=== PATIENT | male | born 1960 | race Caucasian/White ===

== ENCOUNTER 2017-03-03 09:03 | Outpatient (CLI) | payer OTHER ==
[2015-07-20 11:20] VITALS: BP 107/68
[2017-03-03 10:01] LABS: eGFR (African) > 60; eGFR (Non-African) > 60
== END 2017-03-03 09:04 ==
LOC: LAB 09:03
PROVIDERS: ATTEND Family Medicine
DX: E11.9 Type 2 diabetes mellitus without complications (principal)
CPT/HCPCS: 36415; 80053; 82043; 83036

== ENCOUNTER 2017-03-21 09:57 | Day surgery (SDC) | payer OTHER ==
[2015-07-20 11:20] VITALS: BP 107/68
--- NOTE | 2017-03-21 13:28 | GI Report ---
REFERRING PHYSICIAN: Dr. Ignacio Mix SYSTEM CONFIGURATION SPECIALIST: Cy Agosto MD PROCEDURE MEDICATION: Propofol as per anesthesia. INDICATIONS: Patient is a 56-year-old man referred for a colonoscopy. He has had blood in his stool. The patient is a diabetic. He has been a cigarette smoker for 40 years. He denies a family history of colon cancer. PROCEDURE PERFORMED: Colonoscopy with polypectomies. PROCEDURE: An Olympus video colonoscope was advanced into the rectum. In the sigmoid at 20 cm, there was a 3 to 4 mm polyp removed with electrocautery and a very atonic redundant colon. It took some nurse compression to reach the cecum. At the bottom of the cecum, the patient had another 3 to 4 mm polyp removed with electrocautery. On slow withdrawal, the remaining part of the ascending colon and transverse colon were normal except for redundancy. The remaining part of the descending colon was normal except for redundancy. The polyp again was removed in the sigmoid at 20 cm. Retroflexion of the rectum showed some hemorrhoids. Patient tolerated the procedure well. FINDINGS: 1. Two polyps removed, 1 in the cecum and 1 in the sigmoid at 20 cm. 2. Internal hemorrhoids. 3. An atonic redundant colon. RECOMMENDATIONS: 1. Increase bulk fiber in the diet. 2. Recommendation of discontinuing tobacco usage. 3. Consider re-looking at his colon within 5 years pending the pathology of the polyps. cc: Dr. Ignacio VANEGAS
== END 2017-03-21 10:00 ==
LOC: OPSURG 09:57
PROVIDERS: ATTEND Internal Medicine Gastroenterology
DX: K92.1 Melena (principal); F17.210 Nicotine dependence, cigarettes, uncomplicated; E11.9 Type 2 diabetes mellitus without complications; D12.0 Benign neoplasm of cecum; D12.5 Benign neoplasm of sigmoid colon; K59.8 Other specified functional intestinal disorders; K64.8 Other hemorrhoids
CPT/HCPCS: 88305; J2001; J2405; J7120; 45385; S1016

== ENCOUNTER 2017-06-02 09:10 | Outpatient (CLI) | payer OTHER ==
[2015-07-20 11:20] VITALS: BP 107/68
[2017-06-02 09:53] LABS: eGFR (African) > 60; eGFR (Non-African) > 60
== END 2017-06-02 09:11 ==
LOC: LAB 09:10
PROVIDERS: ATTEND Family Medicine
DX: E11.9 Type 2 diabetes mellitus without complications (principal)
CPT/HCPCS: 36415; 80053; 83036

== ENCOUNTER 2017-09-02 18:10 | Emergency (ER) | payer OTHER ==
--- NOTE | 2017-09-02 18:20 | ED Physician Documentation ---
General Adult - HISTORIAN Historian: patient, spouse - HPI Stated Complaint: Cough Chief Complaint: Cough/ Upper Respiratory Onset: days ago (2) Timing: better Severity: mild Modifying Factors: talking or eating increases cough Further Comments: no Last known Well Date: 08/30/17 Last Known Well Time: 08:00 Last known Well Code/Unknown Code: Unknown - ROS CONST: denies: fever, sweating, weakness, chills EYES/ENT: none, nasal drainage, nasal congestion. denies: sore throat CVS/RESP: shortness of breath, cough. denies: chest pain GI/: none MS/SKIN/LYMPH: none - PAST HX Past History: other (DM , anxiety, ) Surgeries/Procedures: other (tib/fib ) Immunizations: referred to PCP - SOCIAL HX Smoking History: cigarettes Alcohol Use: none Drug Use: none - FAMILY HX Family History: No - VITAL SIGNS Vital Signs: Vital Signs Temp Pulse Resp BP Pulse Ox 107/68 07/20/15 11:32 - REVIEWED ASSESSMENTS Nursing Assessment Reviewed: Yes Vitals Reviewed: Yes <Maria Johns - Last Filed: 09/02/17 18:36> - VITAL SIGNS Vital Signs: Vital Signs Temp Pulse Resp BP Pulse Ox 97.6 F 103 H 16 93/66 94 09/02/17 18:12 09/02/17 18:12 09/02/17 18:12 09/02/17 18:12 09/02/17 18:12 <Ramez Lopez - Last Filed: 09/02/17 23:30> - PAST HX Allergies/Adverse Reactions: Allergies Allergy/AdvReac Type Severity Reaction Status Date / Time No Known Allergies Allergy Verified 09/02/17 18:23 Progress - Results/Orders Results/Orders: cbc, cmp, bnp, cxr ordered - Progress Progress: pt. given 1 gram rocephin im, 600 mg mucinex and tessalon perles 200 mg p.o., pulmicort 0.5 mg via nebulizer, duoneb via nebulizer in er <Ramez Lopez - Last Filed: 09/02/17 23:30> Critical Care Note - Critical Care Note Total Time (mins): 0 <Ramez Lopez - Last Filed: 09/02/17 23:30> ED Results Lab/Radiology - Lab Results Lab Results: Lab Results 09/02/17 09/02/17 09/02/17 18:50 18:50 18:50 WBC 9.90 K/ul K/ul (4.00-12.00) RBC 5.47 M/ul H M/ul (3.90-5.20) Hgb 17.1 g/dL g/dL (12.0-18.0) Hct 49.7 % % (37.0-53.0) MCV 91.0 fl fl (80.0-100.0) MCH 31.2 pg pg (28.0-34.0) MCHC 34.3 g/dL g/dL (30.0-36.0) RDW 12.9 % % (11.3-14.3) Plt Count 268 K/mm3 K/mm3 (130-400) Neut % (Auto) 69.5 % % (39.0-79.0) Lymph % (Auto) 19.3 % % (16.0-50.0) [place] % (Auto) 5.3 % % (0.0-11.0) Eos % (Auto) 4.3 % % (0.0-6.8) Baso % (Auto) 0.6 (0.0-1.5) Neut # (Auto) 6.9 # k/uL # k/uL (1.4-7.7) Lymph # (Auto) 1.9 # k/uL # k/uL (0.6-4.0) [place] # (Auto) 0.5 # k/uL # k/uL (0.0-0.9) Eos # (Auto) 0.4 # k/uL # k/uL (0.0-0.6) Baso # (Auto) 0.1 # k/uL # k/uL (0.0-0.5) Reactive Lymphs % 1.1 % % (0.0-5.0) Reactive Lymphs # 0.1 # k/uL # k/uL (0.0-0.8) Sodium 137 mmol/L mmol/L (137-145) Potassium 4.1 mmol/L mmol/L (3.5-5.1) Chloride 101 mmol/L mmol/L (98-107) Carbon Dioxide 26 mmol/L mmol/L (22-30) BUN 8 mg/dL L mg/dL (9-20) Creatinine 1.30 mg/dL H mg/dL (0.66-1.25) Estimated Creat Clear 66 Est GFR ( Amer) > 60 (60 - ) Est GFR (Non-Af Amer) > 60 (60 - ) Glucose 94 mg/dL mg/dL (74-106) Calcium 9.4 mg/dL mg/dL (8.4-10.2) Total Bilirubin 0.2 mg/dL mg/dL (0.2-1.3) AST 38 U/L U/L (15-46) ALT 34 U/L U/L (13-69) Alkaline Phosphatase 86 U/L U/L (38-126) NT-Pro-B Natriuret Pep 27.3 pg/mL pg/mL (15.0-125.0) Total Protein 8.3 g/dL H g/dL (6.3-8.2) Albumin 4.6 g/dL g/dL (3.5-5.0) - Radiology Radiology Impressions: cxr clear of infiltrate - Orders Orders: ED Orders Category Date Time Status CHEST 2 VIEW [CHEST P.A.&LAT 2 VIEWS] [RAD] Stat Exams 09/02/17 Taken BNP [NT-proBNP] Urgent Lab 09/02/17 18:50 Completed CBC/PLATELET/DIFF Routine Lab 09/02/17 18:50 Completed CMP [CMP] Routine Lab 09/02/17 18:50 Completed Benzonatate [Tessalon] Med 09/02/17 19:50 Discontinued 200 mg PO NOW ONE Budesonide [Pulmicort] Med 09/02/17 19:00 Ordered 0.5 mg NEB BID Ipratropium/Albuterol Sulfate [Duoneb] Med 09/02/17 18:33 Discontinued 3 ml NEB NOW ONE Lidocaine 1% 5ml(IM or SUTURE) [Xylocaine] Med 09/02/17 19:51 Discontinued 50 mg IJ NOW ONE cefTRIAXone SODIUM [Rocephin] Med 09/02/17 19:49 Discontinued 1 gm IM NOW ONE guaiFENesin [Mucinex] Med 09/02/17 19:49 Discontinued 600 mg PO NOW ONE <Ramez Lopez - Last Filed: 10/13/17 23:30> General Adult Physical Exam - PHYSICAL EXAM GENERAL APPEARANCE: no distress EENT: eye inspection normal, ENT inspection normal, pharynx normal NECK: normal inspection RESPIRATORY: wheezes CVS: reg rate & rhythm, heart sounds normal ABDOMEN: soft, distended. No: guarding BACK: normal inspection SKIN: warm/dry, normal color EXTREMITIES: non-tender, normal range of motion, no evidence of injury NEURO: oriented X3, CN's nml as tested, motor nml <Maria Johns - Last Filed: 09/02/17 18:36> Discharge <Maria Johns - Last Filed: 09/02/17 18:36> Comments: pt. discharged in stable condition with scripts for keflex 500 mg 2 capsules twice daily for 10 days. tessalon perles 200 mg 1 pill 3x/day and mucinex ds 1 pill 3x/day Decision to Admit: NO Decision Time: 20:38 <Ramez Lopez - Last Filed: 09/02/17 23:30> Clincal Impression: Bronchitis Referrals: Ignacio Mix MD [Primary Care Provider] - 2 Days Condition: Stable Disposition: 01 HOME, SELF-CARE
[2017-09-02] MEDS ORDERED: IPRATROPIUM/ALBUTEROL SULFATE 3 ML AMPUL.NEB NEB ONE (18:33)
[2017-09-02] MEDS ORDERED: BUDESONIDE 0.5MG/2ML AMPUL.NEB NEB ONE (18:39)
[2017-09-02] MEDS ORDERED: BUDESONIDE 0.5MG/2ML AMPUL.NEB NEB SCH (19:00)
[2017-09-02 19:05] LABS: BASOPHILS % 0.6 (0.0-1.5); EOSINOPHILS % 4.3 % (0.0-6.8); MEAN CORPUSCULAR HEMOGLOBIN 31.2 pg (28.0-34.0); MONOCYTES % 5.3 % (0.0-11.0); NEUTROPHILS # 6.9 # k/uL (1.4-7.7)
[2017-09-02 19:16] LABS: eGFR (African) > 60; eGFR (Non-African) > 60
[2017-09-02] MEDS ORDERED: cefTRIAXone SODIUM 1 GM VIAL IM ONE (19:49)
[2017-09-02] MEDS ORDERED: BENZONATATE 100 MG CAPSULE PO ONE (19:50)
[2017-09-02] MEDS ORDERED: Lidocaine 1% 5ml(IM or SUTURE)(PAIN CLINIC) IJ ONE (19:51)
[2017-09-02 21:08] VITALS: BP 140/72
--- NOTE | 2017-09-03 02:21 | Diagnostic Imaging Report ---
JENNY JOHN [facility] [address] [facility] [address] [place], [place]. [address] Report Submission Date: Sep 02, 2017 7:11:45 PM CDT Patient Study Name: NAREN MICHAELS Date: Sep 02, 2017 6:54:04 PM CDT Modality Type: CR Gender: M Description: CHEST : 56 Institution: [facility] Physician: JENNY JOHN Pa and lateral chest Clinical history : Coughing for 2 days Technique pa and lateral upright Findings: The lung barroso are clear. I see no hilar or mediastinal mass. There is no pleural effusion or lesion of the bony thorax except spondylosis of the spine Impression: No acute pulmonary disease Electronically signed on Sep 02, 2017 7:11:45 PM CDT by: Magdiel VANEGAS
== END 2017-09-02 21:00 | disposition home or self-care (01) ==
LOC: ED 18:10
DX: J40 Bronchitis, not specified as acute or chronic (principal)
CPT/HCPCS: 36415; 71020; 80053; 83880; 85025; A9270; J0696; J7626; 96372; 99283

== ENCOUNTER 2017-11-24 09:44 | Outpatient (CLI) | payer OTHER ==
[2017-11-24 10:43] LABS: eGFR (African) > 60; eGFR (Non-African) > 60
== END 2017-11-24 09:45 ==
LOC: LAB 09:44
PROVIDERS: ATTEND Family Medicine
DX: E11.9 Type 2 diabetes mellitus without complications (principal)
CPT/HCPCS: 36415; 80053; 80061; 82043; 83036

== ENCOUNTER 2018-08-23 12:26 | Emergency (ER) | payer OTHER ==
[2018-08-23] MEDS ORDERED: 0.9 % SODIUM CHLORIDE 1,000 ML IV ONE ×2 (12:39→13:47)
--- NOTE | 2018-08-23 12:49 | ED Physician Documentation ---
General Adult - HISTORIAN Historian: patient - HPI Stated Complaint: staggering gait/dizziness Chief Complaint: General Adult Onset: other (at lunch today ) Timing: better Severity: mild Further Comments: yes (He reports around noon going to clock out and he was staggering with his walking to the time clock. He states he "managed" to get to the car and drive home. On the way home he did feel a few waves of dizziness and had to "crawl up the stairs to the house" states he did eat lunch and the symptoms of feeling he could not walk straight did not improve so his and he decided to come to the ER. HE denies any sinus pain or pressure. No ear pain. NO fever. No OTC meds. No chest pain. No slurred speech. denies feeling he was favoring one side vs the other. He is able to speak clearly. No N/V/D. No head injury) Last known Well Code/Unknown Code: Unknown - ROS CONST: no problems EYES/ENT: denies: problems with vision, nasal drainage, nasal congestion CVS/RESP: denies: chest pain, shortness of breath, cough GI/: denies: abdominal pain, vomiting, nausea, diarrhea MS/SKIN/LYMPH: denies: rash NEURO/PSYCH: dizziness, difficulty walking. denies: headache, fainting, tingling, numbness, difficulty with speech, anxiety, depression - PAST HX Past History: hypertension, other (hyperlipidemia ) Other History: diabetes Type 2 Immunizations: UTD Allergies/Adverse Reactions: Allergies Allergy/AdvReac Type Severity Reaction Status Date / Time No Known Allergies Allergy Verified 08/23/18 12:52 - SOCIAL HX Smoking History: cigarettes Alcohol Use: none Drug Use: none - FAMILY HX Family History: No - VITAL SIGNS Vital Signs: Vital Signs Temp Pulse Resp BP Pulse Ox 140/72 09/02/17 21:00 - REVIEWED ASSESSMENTS Nursing Assessment Reviewed: Yes Vitals Reviewed: Yes Progress - Progress Progress: 1350: results so far received discussed with pt and spouse. He is feeling some better. He is not a "big water drinker" so he is agreeable he could be dehydrated. DG 1420: Feeling better per report. Awaiting lab results pt aware DG 1422: Labs resulted and pt aware of plan. DG ED Results Lab/Radiology - Radiology Radiology Impressions: Examination: CT head without contrast History: CT HEAD W/O, DIZZY, STAGGERING GAIT TODAY, NO HX OF INJURY (Hx) Comparison exam: None available Technique: Noncontrast head CT protocol. Findings: Ventricles and sulci are prominent. Cerebrocerebellar parenchyma demonstrates periventricular low attenuation consistent with small vessel disease. No evidence for parenchymal hemorrhage. Bilateral basal ganglia calcifications. No evidence for mass or mass effect. No midline shift. No extra axial fluid collections. Partial visualization of the paranasal sinuses, mastoid air cells, orbits, skull and scalp without gross irregularity. Impression: Age related changes. No acute parenchymal process. No hemorrhage. Electronically signed on Aug 23, 2018 1:24:38 PM CDT by: Aubrey Mendoza - Orders Orders: ED Orders Category Date Time Status Place IV Lock 1T Care 08/23/18 12:[address] BRAIN W/O CONTRAST Stat Exams 08/23/18 Ordered ALCOHOL MEDICAL USE ONLY Routine Lab 08/23/18 Ordered CBC REF Routine Lab 08/23/18 12:38 Received CMP Routine Lab 08/23/18 Ordered CREATINE KINASE Routine Lab 08/23/18 Ordered DRUG SCREEN URINE MEDICAL ONLY Routine Lab 08/23/18 Ordered TROPONIN I (cTnI) Stat Lab 08/23/18 Ordered URINALYSIS Routine Lab 08/23/18 Ordered 0.9 % Sodium Chloride [Normal Saline] 1,000 ml Med 08/23/18 12:39 Ordered IV NOW EKG WITH COMPARISON Stat Ther 08/23/18 Ordered General Adult Physical Exam - PHYSICAL EXAM GENERAL APPEARANCE: no distress EENT: eye inspection normal, ENT inspection normal, pharynx normal, TM's nml, dry mucous membranes NECK: normal inspection RESPIRATORY: no resp distress, chest non-tender, breath sounds normal CVS: reg rate & rhythm, heart sounds normal, equal pulses, no murmur ABDOMEN: soft, normal bowel sounds, no distension, non-tender BACK: normal inspection, no CVA tenderness SKIN: warm/dry, normal color EXTREMITIES: non-tender, normal range of motion, no evidence of injury, no edema NEURO: oriented X3, CN's nml as tested, motor nml, sensation nml, mood/affect nml, cognition normal Discharge Clincal Impression: Dehydration Referrals: Ignacio Mix MD [Primary Care Provider] - 2 Days Comments: 1. Increase fluid intake 2. Change position slowly 3. Follow up with Dr Mix in 2-4 days or sooner if no improvement 4. Rest today 5. Return to ER for any concerns Condition: Stable Disposition: 01 HOME, SELF-CARE Decision to Admit: NO Date of Decison to Admit: 08/23/18 Decision Time: 14:24
[2018-08-23 13:14] LABS: eGFR (Non-African) 60
[2018-08-23 13:51] LABS: BASO % 0.4 % (0.0-1.5); EOS % 2.4 % (0.0-6.8); LYMPH ABS # 4.59 thou/uL (0.60-4.00); MCH. 30.8 pg (28.0-34.0); MCV 91.3 fL (80.0-100.0); MONOCYTE % 4.4 % (0.0-11.0); MONOCYTE ABS # 0.59 thou/uL (0.00-0.90); PLATELET COUNT 326 thou/uL (130-400)
[2018-08-23 14:19] LABS: TROPONIN T <0.010 ng/mL (<0.010)
[2018-08-23 14:45] VITALS: BP 107/68
[2018-08-23 15:09] LABS: APPEARANCE,URINE CLEAR (CLEAR); CANNABINOIDS NEGATIVE ng/mL (< 50); COLOR,URINE AMBER (YELLOW); METHYLENEDIOXYMETHAMPHETAMINE NEGATIVE ng/mL (<500)
[2018-08-23 15:10] LABS: OCCULT BLOOD,URINE NEGATIVE (NEGATIVE)
--- NOTE | 2018-08-23 15:32 | Diagnostic Imaging Report ---
JENNY JOHN [facility] [address] [facility] [address] [place], [place]. [address] Report Submission Date: Aug 23, 2018 1:24:38 PM CDT Patient Study Name: NAREN MICHAELS Date: Aug 23, 2018 1:03:17 PM CDT Modality Type: CT\SR Gender: M Description: CT BRAIN W/O CONTRAST : 56 Institution: [facility] Physician: JENNY JOHN Examination: CT head without contrast History: CT HEAD W/O, DIZZY, STAGGERING GAIT TODAY, NO HX OF INJURY (Hx) Comparison exam: None available Technique: Noncontrast head CT protocol. Findings: Ventricles and sulci are prominent. Cerebrocerebellar parenchyma demonstrates periventricular low attenuation consistent with small vessel disease. No evidence for parenchymal hemorrhage. Bilateral basal ganglia calcifications. No evidence for mass or mass effect. No midline shift. No extra axial fluid collections. Partial visualization of the paranasal sinuses, mastoid air cells, orbits, skull and scalp without gross irregularity. Impression: Age related changes. No acute parenchymal process. No hemorrhage. Electronically signed on Aug 23, 2018 1:24:38 PM CDT by: Aubrey VANEGAS
== END 2018-08-23 14:29 | disposition home or self-care (01) ==
LOC: ED 12:26
DX: E86.0 Dehydration (principal)
CPT/HCPCS: 70450; 80053; 80320; 80377; 81002; 82550; 84484; 85025; 93005; J7030; 96360; 96361; 99284; G0480; G0481; S1016

== ENCOUNTER 2019-01-12 09:25 | Outpatient (CLI) | payer OTHER ==
[2019-01-12 10:20] LABS: eGFR (Non-African) > 60
== END 2019-01-12 09:35 ==
LOC: LAB 09:25
PROVIDERS: ATTEND Family Medicine
DX: E11.9 Type 2 diabetes mellitus without complications (principal)
CPT/HCPCS: 36415; 80053; 80061; 82043; 83036

== ENCOUNTER 2019-09-27 11:50 | Outpatient (CLI) | payer OTHER ==
[2019-09-27 12:34] LABS: A1C 5.6 % (<5.7)
[2019-09-27 13:10] LABS: HDL 38 mg/dL (>40); eGFR (Non-African) > 60
--- NOTE | 2019-09-27 15:30 | Diagnostic Imaging Report ---
PATIENT MR#: [id number] PATIENT PATIENT NAME: NAREN MICHAELS DATE OF : 1960 REFERRING PHYSICIAN: Ignacio Mix EXAM DATE: 09/27/2019 ACCESSION NUMBER: [id number] EXAM DESCRIPTION: CHEST 2VIEW HISTORY: COUGH X1 MONTH, PT STATES SMOKER- 1.5 PPD, NO OTHER KNOWN CHEST HX. COMPARISON: None available. CHEST RADIOGRAPH, FRONTAL AND LATERAL: Upper mediastinum: Not widened. Heart: No cardiomegaly. Lungs: There is an 8 mm hemispherically shaped density superimposed over the left 6th anterior rib wh ich likely represents nipple shadow. No lobar infiltrate, pulmonary edema, pneumothorax or significant effusion. Skeleton: No acute findings. IMPRESSION: 1. Probable nipple shadow superimposed over the left lower lung. This may be confirmed with bilateral shallow oblique chest radiograph with nipple markers, to exclude left lower lobe pulmonary nodule, in a patient with smoking history. 2. No acute thoracic process. Read by: Dr. Marcio Torres Transcribed by: Marcio Torres Transcribed Date: 09/27/2019 3:29:45 PM Electronically signed by: Dr. Marcio Torres Date signed: 09/27/2019 3:30:06 PM
== END 2019-09-27 11:55 ==
LOC: LAB 11:50
PROVIDERS: ATTEND Family Medicine
DX: E11.9 Type 2 diabetes mellitus without complications (principal); I10 Essential (primary) hypertension; R63.4 Abnormal weight loss; R05 Cough
CPT/HCPCS: 36415; 71046; 80053; 80061; 82043; 83036; 84439; 84443; 84481

== ENCOUNTER 2019-10-10 08:47 | Outpatient (CLI) | payer OTHER ==
--- NOTE | 2019-10-10 17:29 | Diagnostic Imaging Report ---
PATIENT MR#: [id number] PATIENT PATIENT NAME: NAREN MICHAELS DATE OF : 1960 REFERRING PHYSICIAN: Ignacio Mix EXAM DATE: 10/10/2019 ACCESSION NUMBER: [id number] EXAM DESCRIPTION: CT CHEST W/O CONT CA S CLINICAL HISTORY: Lung cancer screening. 38 year, 2 PPD smoking history TECHNIQUE: CT chest without contrast. COMPARISON: September 27, 2019 chest radiograph, demonstrating 8 mm nodule superimposed over the left l cara. CT CHEST WITHOUT CONTRAST: Lungs: Mild-moderate bilateral emphysematous changes. Subpleural atelectasis of the right posterior l ower lobe. Right middle lobe discoid atelectasis. No infiltrate, masses or effusion. Heart: Normal size. No significant effusion. Mild coronary artery atherosclerosis. Aorta: Normal caliber. Mediastinum and cammy: No significant lymphadenopathy allowing for limitation of noncontrast technique . Bony thorax: No acute findings. Limited upper abdomen: No acute findings. IMPRESSION: 1. Mild-moderate bilateral emphysematous changes. 2. No evidence of pulmonary nodules or mass. The shadow visualized on the recent chest radiograph rep resented overlying nipple shadow. Read by: Dr. Marcio Torres Transcribed by: Marcio Torres Transcribed Date: 10/10/2019 5:28:14 PM Electronically signed by: Dr. Marcio Torres Date signed: 10/10/2019 5:29:25 PM
== END 2019-10-10 08:56 ==
LOC: RAD 08:47
PROVIDERS: ATTEND Family Medicine
DX: F17.210 Nicotine dependence, cigarettes, uncomplicated (principal); E03.9 Hypothyroidism, unspecified
CPT/HCPCS: 36415; 84443; 86376; 86800; G0297